=== PATIENT | female | born 1990 | race Caucasian/White ===

== ENCOUNTER 2019-12-25 06:09 | Day surgery (SDC) | payer OTHER ==
[2019-12-25] MEDS ORDERED: Dextrose 5%-Lactated Ringers 1,000 ML IV SCH (06:30)
[2019-12-25] MEDS ORDERED: Propofol 200 MG/20 ML SDV ONE (07:06)
[2019-12-25] MEDS ORDERED: Midazolam 1 MG/ML 2 ML SDV ONE (07:07)
[2019-12-25] MEDS ORDERED: fentaNYL 100 MCG/2 ML SDV ONE (07:07)
[2019-12-25] MEDS ORDERED: Glycopyrrolate 0.2 MG/ML 2 ML SDV IVPUSH ONE (07:15)
[2019-12-25] MEDS ORDERED: Pantoprazole 40 MG Vial IVPUSH ONE (07:35)
--- NOTE | 2020-01-06 14:54 | OR ---
DATE OF PROCEDURE: 12/25/2019 SURGEON: Abelardo Chino MD PREOPERATIVE DIAGNOSES: 1. History of heartburn and probable gastroesophageal reflux disease. 2. Dysphagia referable to the laryngopharyngeal level. POSTOPERATIVE DIAGNOSES: 1. Small hiatal hernia with moderately active gastroesophageal reflux disease. 2. Reddened larynx and hypopharynx consistent with gastroesophageal reflux disease. 3. Multiple gastric polyps (probable benign fundic gland polyps). 4. Patchy antral gastritis. OPERATIVE PROCEDURE: Esophagogastroduodenoscopy with: 1. Biopsy of esophagogastric junction for histologic evaluation. 2. Biopsies of antrum for CLOtest (93819). 3. Polypectomy of gastric body polyp (39192). ANESTHESIA: IV sedation. INDICATION FOR PROCEDURE: This is a 29-year-old presenting with some ongoing problems with heartburn and some dysphagia referable to laryngopharyngeal area. She does have some occasional dysphagia referable to the distal esophagus as well. In the past, she has been on omeprazole and there was some improvement, but is not presently on any antisecretory medication. Plan is to proceed with upper GI endoscopy with biopsies and dilation as indicated. Potential risks including bleeding and perforation were discussed, and the patient wishes to proceed. DETAILS OF PROCEDURE: The patient was taken to the operating room and placed in a left lateral decubitus position. IV sedation was administered, after which the upper GI endoscope was passed orally through the length of the esophagus into the stomach with retroflexion view of the fundus, and thereafter through the pyloric channel to the junction of the third and fourth portions of the duodenum. Findings included some reddening of the hypopharynx and larynx. Otherwise, there are no areas of stricturing or stenosis at that level or at level of the upper esophageal sphincter. Esophageal body itself appeared to be fairly normal. There was a small hiatal hernia measuring 1 to 2 cm with moderately active gastroesophageal reflux disease. 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 Within the stomach, the patient had multiple small polyps consistent with fundic gland polyps and some patchy redness in the antrum. The pyloric channel and visualized portions of the duodenum were unremarkable. At this point, biopsies were obtained from the antrum and sent for CLOtest for H pylori and multiple biopsies were then obtained from esophagogastric junction, sent for histologic evaluation. Finally, one of the larger polyps was encircled at its base with cautery snare and excised and this was grasped with a basket and retrieved with the gastroscope. No significant bleeding was noted and the patient tolerated the procedure well At this point, we will give the patient Protonix 40 mg IV in PAR and then started on Protonix 40 mg daily. We will see the patient back on 12/30/2019. She has suggested that she is interested in surgical correction of this problem if it appears feasible so as to avoid more or less lifetime need for medical management of her reflux. Abelardo Chino MD /[id number]
== END 2019-12-25 10:20 | disposition home or self-care (01) ==
LOC: JP.SDS 06:09
PROVIDERS: ATTEND Surgery
DX: K29.50 Unspecified chronic gastritis without bleeding (principal); K44.9 Diaphragmatic hernia without obstruction or gangrene; K31.7 Polyp of stomach and duodenum; K86.89 Other specified diseases of pancreas; K21.0 Gastro-esophageal reflux disease with esophagitis; J45.909 Unspecified asthma, uncomplicated; F41.9 Anxiety disorder, unspecified
CPT/HCPCS: 43239; 43251; 81025; 87081; 88305; C9113; J2250; J2704; J3010; J3490; J7121

== ENCOUNTER 2020-01-08 06:22 | Inpatient (IN) | payer OTHER ==
[2020-01-08] MEDS ORDERED: Scopolamine 1.5 MG Transdermal Patch TOP ONE (06:45)
[2020-01-08] MEDS ORDERED: Acetaminophen 500 MG Tab PO ONE (06:45)
[2020-01-08] MEDS ORDERED: Succinylcholine 200 MG/10 ML MDV ONE (07:10)
[2020-01-08] MEDS ORDERED: Glycopyrrolate 0.2 MG/ML 5 ML MDV ONE (07:10)
[2020-01-08] MEDS ORDERED: Dexamethasone 4 MG/ML SDV ONE (07:10)
[2020-01-08] MEDS ORDERED: Ondansetron 4 MG/2 ML SDV ONE (07:10)
[2020-01-08] MEDS ORDERED: Neostigmine Methylsulfate 1 MG/ML 5 ML Syringe ONE (07:10)
[2020-01-08] MEDS ORDERED: fentaNYL 250 MCG/5 ML SDV ONE (07:10)
[2020-01-08] MEDS ORDERED: Propofol 200 MG/20 ML SDV ONE (07:10)
[2020-01-08] MEDS ORDERED: Rocuronium 50 MG/5 ML Vial ONE (07:10)
[2020-01-08] MEDS: Dextrose 5%-Lactated Ringers 1,000 ML IV SCH ×2 (07:45→11:22)
[2020-01-08] MEDS ORDERED: ceFAZolin 2 GM in Premix Bag 1 BAG IV ONE (07:45)
[2020-01-08] MEDS ORDERED: Ketamine 50 MG in Sodium Chloride 0.9% 49.5 ML IV SCH (08:00)
[2020-01-08] MEDS ORDERED: Ketamine 500 MG/5 ML MDV IV SCH (08:00)
[2020-01-08] MEDS ORDERED: Ropivacaine 36 ML, dexAMETHasone 8 MG, EPINEPHrine 0.4 MG, Sodium Chloride 0.9% 41.6 ML NERVRT SCH ×4 (08:10)
[2020-01-08] MEDS ORDERED: hydrOXYzine HCL 100 MG/2 ML SDV IM ONE (09:48)
[2020-01-08] MEDS ORDERED: fentaNYL 100 MCG/2 ML SDV IVPUSH ONE (09:48)
[2020-01-08] MEDS ORDERED: Dextrose 5%-Lactated Ringers 1,000 ML IV SCH (11:45)
[2020-01-08] MEDS ORDERED: Metoclopramide 10 MG/2 ML SDV IVPUSH PRN (11:50)
[2020-01-08] MEDS ORDERED: Rizatriptan 10 MG Tab.DIS PO PRN (11:51)
[2020-01-08] MEDS ORDERED: HYDROmorphone 0.5 MG/0.5 ML Syringe IVPUSH PRN (12:00)
[2020-01-08] MEDS ORDERED: Albuterol/Ipratropium 3.0-0.5 MG/3 ML Neb Soln INH PRN (12:00)
[2020-01-08] MEDS ORDERED: Ondansetron 4 MG/2 ML SDV IVPUSH PRN (12:00)
[2020-01-08] MEDS ORDERED: HYDROmorphone 1 MG/ML Syringe IV PRN (12:00)
[2020-01-08] MEDS: Albuterol/Ipratropium 3.0-0.5 MG/3 ML Neb Soln INH SCH ×2 (14:34→20:12)
[2020-01-08] MEDS: ceFAZolin 2 GM in Premix Bag 1 BAG IV SCH (15:44)
[2020-01-08] MEDS: Pantoprazole 40 MG Vial IVPUSH SCH (15:45)
[2020-01-08] MEDS: HYDROmorphone 2 MG Tab PO PRN ×2 (15:49→20:16)
[2020-01-09] MEDS: ceFAZolin 2 GM in Premix Bag 1 BAG IV SCH ×2 (00:11→07:37)
[2020-01-09] MEDS: HYDROmorphone 2 MG Tab PO PRN (04:54)
[2020-01-09] MEDS: Pantoprazole 40 MG Vial IVPUSH SCH (04:55)
[2020-01-09] MEDS: Albuterol/Ipratropium 3.0-0.5 MG/3 ML Neb Soln INH SCH ×2 (07:16→11:31)
[2020-01-09] MEDS ORDERED: Magnesium Hydroxide 400 MG/5 ML Susp 30 ML Cup PO ONE (08:34)
[2020-01-09] MEDS ORDERED: Verapamil 120 MG Tab.ER PO SCH (09:00)
[2020-01-09] MEDS ORDERED: CHECK SCOPALAMINE PATCH TOP SCH (09:00)
[2020-01-09] MEDS ORDERED: Escitalopram 20 MG Tab PO SCH (09:00)
--- NOTE | 2020-01-10 13:21 | DISCH ---
FINAL DIAGNOSES: 1. Paraesophageal diaphragmatic hernia associated with gastroesophageal reflux disease refractory to medical management. 2. Mediastinal lipoma. 3. History of asthma. 4. History of anxiety disorder. 5. History of hypertension. 6. History of migraines. OPERATIVE PROCEDURE: Done on 01/08/2020, diagnostic laparoscopy with: 1. Laparoscopic Dhruv fundoplication with repair of paraesophageal diaphragmatic hernia with mesh. 2. Excision of mediastinal lipoma. SUMMARY: This is a 29-year-old female presenting with gastroesophageal reflux disease that has become progressively refractory to medical management. After preoperative evaluation and discussion, she wished to proceed with a Dhruv fundoplication. This was done on the date of admission. Postoperatively, the patient has been tolerating a full liquid diet and will be sent home on a full liquid diet for 2 weeks and then advance to soft solids as tolerated. Otherwise, follow up with Dr. Chino at [facility] on 01/20/2020. She will be sent home on her usual medications plus Dilaudid 2 mg p.o. q.4 hours p.r.n. pain #30, Tylenol 1 g p.o. q.i.d. p.r.n. pain, and we will send her home with 2 doses of milk of magnesia for constipation as needed.
--- NOTE | 2020-01-20 10:59 | OR ---
DATE OF PROCEDURE: 01/08/2020 SURGEON: Abelardo Chino MD PREOPERATIVE DIAGNOSIS: Gastroesophageal reflux disease refractory to medical management. POSTOPERATIVE DIAGNOSES: 1. Paraesophageal diaphragmatic hernia associated with gastroesophageal reflux disease refractory to medical management. 2. Mediastinal lipoma. OPERATIVE PROCEDURES: 1. Laparoscopic Dhruv fundoplication with concurrent repair of paraesophageal diaphragmatic hernia with mesh (51564). 2. Excision of mediastinal lipoma (28007). ANESTHESIA: General. MANAGER PRIMARY: Alba Acosta PA-C INDICATION FOR PROCEDURE: A 29-year-old female presenting with ongoing gastroesophageal reflux disease. It has been fairly refractory to medical management, and after discussion of treatment options, the patient wished to proceed with a Dhruv fundoplication. Potential risks of procedure including bleeding, infection, injury to the viscera in the area, problems with the fundoplication such as short term or custodial dysphasia, disorders with gastric emptying rate, gas bloat syndrome, and possible incomplete relief of reflux symptoms, either in short or intermediate project manager, were all reviewed, and the patient wishes to proceed. DETAILS OF PROCEDURE: The patient was taken to the operating room and placed in the supine position. After general endotracheal anesthesia was induced, she was converted to a lithotomy position and the abdomen prepped and draped. At 15 cm inferior and 3 cm to the left of the xiphoid, a transverse incision was made and peritoneal cavity entered under direct vision with an Optiview trocar. Peritoneal cavity was inflated to 15 mmHg pressure with CO2 and the laparoscope was reinserted. No underlying trocar insertion site injuries were seen. Following this, 4 additional trocars were placed across the upper and mid abdomen, and general exploration was undertaken. The patient had a normal appearing liver. Upon elevation of the liver, she did have a fairly large diaphragmatic hernia with a major paraesophageal component to it with prolapse of some omentum and perigastric fat in gastric fundus along the plane of the course of the esophagus and stomach. Hernia was then reduced at this point. The peritoneum overlying it was divided and dissection of the esophagus was then commenced with Harmonic scalpel, freeing the esophagus from the right and left crura, as well as retroesophageal area. During the course of dissection, roughly a ping pong ball-sized mediastinal lipoma was excised to facilitate more adequate crural repair. Once the retroesophageal window was created, some additional dissection appeared to result in a roughly 5 cm segment of retroabdominal esophagus. The crural repair was then accomplished posteriorly with 0 Ethibond sutures reinforced with PTFE pledgets to the size of the defect. Phasix ST mesh was used. This was cut in a horseshoe-type configuration and laid over the crural repair and attached to the crura on each side with titanium tacking screws. The greater omentum was then divided away from the upper body of the stomach with Harmonic scalpel. This dissection then continued upward onto the fundus with division of the short gastric vessels, including the highest and posterior short gastric vessels. The additional attachments to the medial aspect of fundus were then freed up with Harmonic scalpel as well to define actual mobility of the fundus. The fundus was then retrieved through the retroesophageal window and manipulated such that it would be in the most comfortable position in terms of snugness. Anesthesia then placed a guidewire orally through the length of the esophagus into the stomach. Over this, a 48-Swedish Savory dilator was placed. A 3-stitch 2 cm fundoplication was then accomplished with the dilator in place using 0 Ethibond sutures reinforced with PTFE pledgets. Each of the fundoplication stitches included bites of the underlying esophagus, which held this in position, and 2 stitches between the fundus and the underlying diaphragm with the same stitch pledget combination were placed to help affix the fundoplication in position as well. At that point, the dilator and wire were removed. The fundoplication was inspected and found to be satisfactorily floppy, and no further problems were noted. Trocars removed and peritoneal cavity deflated. Incisions were closed with some 4-0 Vicryl skin stitch and dressing applied. Prior to closure, bilateral transversus abdominis plane blocks had been placed, and the patient was taken to the recovery room in satisfactory condition. Physician communication assistant, Alba Acosta, played an essential role in assisting in this case, helping to position the patient, retract structures as needed, as well as suturing and cutting sutures when indicated. Her presence improved patient safety and decreased operative time. Abelardo Chino MD /[id number]
== END 2020-01-09 12:55 | disposition home or self-care (01) | DRG 328 ==
LOC: JP.SDSSCHI 06:22 → JP.SDS 06:22 → JP.MS 09:15 → EDSTATUS 12:15
PROVIDERS: ADMIT Surgery; ATTEND Surgery
PROC: 0DV44ZZ Restriction of Esophagogastric Junction, Percutaneous Endoscopic Approach (ICD-10-PCS; principal; 2020-01-08)
PROC: 0BUT4JZ Supplement Diaphragm with Synthetic Substitute, Percutaneous Endoscopic Approach (ICD-10-PCS; 2020-01-08)
PROC: 0JB63ZZ Excision of Chest Subcutaneous Tissue and Fascia, Percutaneous Approach (ICD-10-PCS; 2020-01-08)
DX: K21.9 Gastro-esophageal reflux disease without esophagitis (principal); K44.9 Diaphragmatic hernia without obstruction or gangrene; D17.1 Benign lipomatous neoplasm of skin and subcutaneous tissue of trunk; I10 Essential (primary) hypertension; J45.909 Unspecified asthma, uncomplicated; F41.9 Anxiety disorder, unspecified; Z79.899 Other long term (current) drug therapy
CPT/HCPCS: 81025; 88304; 94640; 94762; A9270-GY; C1781; C9113; J0171; J0330; J0690; J1100; J2405; J2704; J2710; J2795; J3010; J3410; J3490; J7050; J7121; J7620-GY

== ENCOUNTER → 2021-04-20 | Day surgery (SDC) | payer OTHER ==
[~2021-04-20] MED LIST: Dextrose 5%-Lactated Ringers 1,000 ML IV SCH; Glycopyrrolate 0.2 MG/ML 2 ML SDV IVPUSH ONE; Midazolam 1 MG/ML 2 ML SDV ONE; Propofol 200 MG/20 ML SDV ONE; fentaNYL 100 MCG/2 ML SDV ONE
--- NOTE | 2021-04-30 12:44 | OR ---
DATE OF PROCEDURE: 04/20/2021 SURGEON: Abelardo Chino MD PREOPERATIVE DIAGNOSIS: Dysphagia, status post Dhruv fundoplication. POSTOPERATIVE DIAGNOSIS: Dysphagia, status post Dhruv fundoplication, with normal exam status post Dhruv fundoplication other than mild antral gastritis. OPERATIVE PROCEDURE: Upper gastrointestinal endoscopy with: 1. Biopsies of antrum for CLOtest. 2. Dilation of esophagus. ANESTHESIA: IV sedation. INDICATION FOR PROCEDURE: A 30-year-old female status post Dhruv fundoplication in December of this year, presenting with some worsening dysphagia referable to the distal esophagus. Plan is to proceed with upper GI endoscopy with biopsies and/or dilation as indicated. Potential risks including bleeding, infection, possible perforation, problems with the dilation causing some recurrent reflux as well as not being efficacious in terms of resolution of the dysphagia were all reviewed, and the patient wishes to proceed. DETAILS OF PROCEDURE: The patient was taken to the operating room and placed in a left lateral decubitus position. IV sedation was administered after which the upper GI endoscope was passed orally through the length of the esophagus, and at that point, the area of the Dhruv fundoplication was noted to be intact. There was no inflammation per se grossly at the distal esophagus or esophagogastric junction. There was narrowing down of the lumen, but the scope easily passed through that area with essentially no resistance. Retroflexion also then showed an intact Dhruv fundoplication from that vantage point. The patient was noted to have some patchy redness in the antrum. Otherwise, normal pyloric channel and proximal duodenum. Biopsies were obtained from the antrum and sent for CLOtest to check the patient's H. pylori status. Following this, a guidewire was passed into the stomach, and the gastroscope was withdrawn. A 40-Spanish Savary dilator was then passed over the guidewire and held in position across the esophagogastric junction for 1 minute after which the dilator and wire were removed and the procedure then concluded. Plan will be to give the patient a trial of some Levsin 0.125 mg sublingual q.6 hours p.r.n. and perhaps before meals to see if this helps relax the esophagus, and we will otherwise see the patient back on 05/03/2021. The patient likely having some progressive inflammation at the area around the wrap which eventually resolved, but may further continue to have some dysphagia. Abelardo Chino MD /[id number]
== END ==
LOC: JP.SDS 07:49
PROVIDERS: ATTEND Surgery
DX: K91.89 Other postprocedural complications and disorders of digestive system (principal); R13.10 Dysphagia, unspecified; K29.60 Other gastritis without bleeding; Z98.84 Bariatric surgery status; I10 Essential (primary) hypertension; K21.9 Gastro-esophageal reflux disease without esophagitis; F41.9 Anxiety disorder, unspecified; E66.9 Obesity, unspecified; Z68.29 Body mass index [BMI] 29.0-29.9, adult
CPT/HCPCS: 81025; 87081; J2250; J2704; J3010; J3490; J7121

== ENCOUNTER 2024-05-29 08:08 | Day surgery (SDC) | payer OTHER ==
[2024-05-29] MEDS ORDERED: Propofol 200 MG/20 ML SDV ONE (08:14)
[2024-05-29] MEDS ORDERED: Dexamethasone 4 MG/ML SDV ONE (08:14)
[2024-05-29] MEDS ORDERED: Glycopyrrolate 0.2 MG/ML 5 ML MDV ONE (08:14)
[2024-05-29] MEDS ORDERED: Ondansetron 4 MG/2 ML SDV ONE (08:14)
[2024-05-29] MEDS ORDERED: Succinylcholine 200 MG/10 ML MDV ONE (08:14)
[2024-05-29] MEDS ORDERED: Rocuronium 50 MG/5 ML Vial ONE (08:14)
[2024-05-29] MEDS ORDERED: Neostigmine Methylsulfate 10 MG/10 ML MDV ONE (08:14)
[2024-05-29] MEDS ORDERED: fentaNYL 250 MCG/5 ML SDV ONE ×2 (08:16→09:53)
[2024-05-29] MEDS: Lactated Ringers 1,000 ML IV SCH (08:43)
[2024-05-29] MEDS: Indocyanine Green 25 MG SDV IV ONE (09:08)
[2024-05-29] MEDS: metroNIDAZOLE/Normal Saline 500 MG in Premix Bag 1 BAG IV ONE (09:08)
[2024-05-29] MEDS: ceFAZolin 2 GM in Premix Bag 1 BAG IV ONE (10:00)
[2024-05-29] MEDS: Bupivacaine 0.5% 50 ML MDV ONE (10:15)
[2024-05-29] MEDS: Lidocaine 1% with EPINEPHrine 1:100,000 50 ML MDV ONE (10:15)
[2024-05-29] MEDS: Ropivacaine 40 ML, dexAMETHasone 8 MG, EPINEPHrine 0.4 MG, Sodium Chloride 0.9% 37.6 ML NERVRT SCH (10:15)
[2024-05-29] MEDS ORDERED: Sugammadex Sodium 200 MG/2 ML VIAL IV ONE (10:30)
[2024-05-29] MEDS: Ondansetron 4 MG/2 ML SDV IVPUSH PRN (12:11)
[2024-05-29] MEDS: Scopalamine 1mg/3day Transdermal Patch TOP ONE (12:51)
[2024-05-29] MEDS ORDERED: Scopalamine 1mg/3day Transdermal Patch ONE (13:15)
[2024-05-29] MEDS ORDERED: Acetaminophen/HYDROcodone 325-5 MG Tab PO ONE (13:35)
[2024-05-29] MEDS: Acetaminophen/HYDROcodone 325-5 MG Tab PO ONE (13:46)
== END 2024-05-29 14:50 | disposition home or self-care (01) ==
LOC: JP.SDS 08:08
PROVIDERS: ATTEND Surgery
DX: K80.10 Calculus of gallbladder with chronic cholecystitis without obstruction (principal); K21.9 Gastro-esophageal reflux disease without esophagitis; I10 Essential (primary) hypertension; F41.1 Generalized anxiety disorder; J45.20 Mild intermittent asthma, uncomplicated; Z79.899 Other long term (current) drug therapy
CPT/HCPCS: 00790-QZ; 81025; A9270-GY; J0171; J0330; J0665; J0690; J1100; J1596; J1836; J2405; J2704; J2710; J2795; J3010; J3490; J7120

== ENCOUNTER 2025-05-06 19:49 | Emergency (ER) | payer OTHER ==
[2025-05-06 20:37] LABS: BASOPHILS ABSOLUTE AUTO 0.14 K/uL (0.00-0.10); BASOPHILS PERCENT AUTO 0.7 % (0.1-1.3); EOSINOPHILS ABSOLUTE AUTO 0.39 K/uL (0.00-0.40); EOSINOPHILS PERCENT AUTO 2.0 % (0.0-5.4); IMMATURE GRAN ABSOLUTE AUTO 0.10 K/uL (0.00-0.23); IMMATURE GRAN PERCENT AUTO 0.5 % (0.0-0.7); LYMPHOCYTES ABSOLUTE AUTO 2.02 K/uL (0.8-3.3); LYMPHOCYTES PERCENT AUTO 10.2 % (11.4-47.7); MONOCYTES ABSOLUTE AUTO 1.90 K/uL (0.20-0.90); MONOCYTES PERCENT AUTO 9.6 % (3.3-12.6); NEUTROPHILS ABSOLUTE AUTO 15.26 K/uL (1.0-7.6); NEUTROPHILS PERCENT AUTO 77.0 % (40.0-78.1); PLATELET COUNT,PLT 389 K/uL (130-375); RED BLOOD CELL COUNT 4.27 M/uL (3.77-5.24); WHITE BLOOD CELL COUNT,WBC 19.8 K/uL (3.2-11.0)
[2025-05-06] MEDS: LORazepam 2 MG/ML SDV IM ONE (20:50)
[2025-05-06 21:02] LABS: BLOOD UREA NITROGEN,BUN 17.0 mg/dL (7-18); CARBON DIOXIDE,CO2 25.0 mmol/L (21-32); CHLORIDE,CL 106.0 mmol/L (100-108); CREATININE 0.9 mg/dL (0.6-1.0); EST CRCL DRUG DOSING (CG) 71.48 mL/min; ESTIMATED GFR 85.0 mL/min (>60); GLUCOSE RANDOM 170.0 mg/dL (74-106); POTASSIUM,K 3.7 mmol/L (3.6-5.2); SODIUM,NA 141.0 mmol/L (140-148); TROPONIN I HIGH SENSITIVITY 6.4 pg/mL (<=60.3)
[2025-05-06 21:08] LABS: TSH ULTRASENSITIVE 1.38 uIU/mL (0.358-3.740)
[2025-05-06 21:27] LABS: APPEARANCE,URINE CLEAR (CLEAR); GLUCOSE,URINE NEGATIVE (NEGATIVE); OCCULT BLOOD,URINE SMALL (NEGATIVE)
[2025-05-06 21:34] LABS: SQUAMOUS EPITHELIAL CELLS,UR RARE /HPF
[2025-05-06 21:35] LABS: UROTHELIAL CELLS,URINE NOT SEEN /HPF
[2025-05-06] MEDS: Iopamidol 612 MG/ML 100 ML Bottle IV SCH (22:51)
[2025-05-06] MEDS: Sodium Chloride 0.9% 10 ML Syringe FLUSH PRN (22:51)
== END 2025-05-07 | disposition home or self-care (01) ==
LOC: JP.ED 19:49
DX: R00.0 Tachycardia, unspecified (principal); I10 Essential (primary) hypertension; J45.909 Unspecified asthma, uncomplicated; Z79.899 Other long term (current) drug therapy; Z88.8 Allergy status to other drugs, medicaments and biological substances; Z79.51 Long term (current) use of inhaled steroids; Z86.16 Personal history of COVID-19; Z90.49 Acquired absence of other specified parts of digestive tract
CPT/HCPCS: 36415; 71046; 74177; 80048; 81001; 83605; 83735; 84443; 84484; 85025; 93005; 96372; 96374; 96375; 99285; J1790; J1920; J2060; J7030; Q9967; 93010; 99284